=== PATIENT | male | born 1950 | race Hispanic/Latino ===

== ENCOUNTER 2024-04-30 08:27 | Inpatient (IN) | payer MEDICARE ==
[2024-04-30 09:06] LABS: #Basophils 0.03 10x3/uL (0.0-0.2); %Basophils 0.2 % (0.0-1.0); %Eosinophils 0.4 % (0.0-10.0); %Lymphocytes 8.2 % (21.0-51.0); %Monocytes 5.2 % (0.0-10.0); %Neutrophils 85.5 % (42.0-75.0); Hematocrit 45.8 % (42.0-52.0); Hemoglobin 15.9 g/dL (14.0-18.0); Mean Corpuscular HGB CONC 34.7 g/dL (32.0-36.0); Mean Corpuscular Hemoglobin 32.6 pg (27.0-31.0); Mean Platelet Volume 11.3 fL (7.4-10.4); Platelet Count 146 10x3/uL (130-400); RBC Distribution Width 13.1 % (11.5-14.5); Red Blood Cell (RBC) Count 4.87 mill/uL (4.70-6.10)
[2024-04-30 09:21] LABS: ALT (SGPT) 22 U/L (8-55); AST (SGOT) 23 U/L (5-34); Acetaminophen Less than 10 mcg/mL (10.0-30.0); Albumin 4.1 g/dL (3.4-4.8); Alcohol Less than 10.0 mg/dL (Less than 10); Alkaline Phosphatase 115 U/L (40-110); Anion Gap 16 mmol/L (10-20); BUN (Urea Nitrogen) 14 mg/dL (8.4-25.7); Bilirubin, Total 1.2 mg/dL (0.2-1.2); Calc. Creatinine Clearance 0 mL/min (70-130); Calcium 9.4 mg/dL (7.8-10.44); Carbon Dioxide 23 mmol/L (23-31); Chloride 103 mmol/L (98-107); Estimated GFR 70; Globulin 3.4 g/dL (2.4-3.5); Glucose 153 mg/dL (83-110); Potassium 3.6 mmol/L (3.5-5.1); Protein, Total 7.5 g/dL (5.8-8.1); Salicylate Less than 8.0 mg/dL (15.0-30.0); Sodium 138 mmol/L (136-145)
[2024-04-30 09:26] LABS: Troponin I Less than 0.010 ng/mL (< 0.028)
[2024-04-30 11:01] LABS: Bacteria/HPF None Seen HPF (None Seen); Bilirubin Negative (Negative); Blood, Urine Negative (Negative); CAUTI Indications for Culture Alt mental st,lethar; Clarity Clear (Clear); Glucose, Urine (Dipstick) Greater than 1000 mg/dL (Negative); Ketone, Urine Trace mg/dL (Negative); Leukocyte Negative Leu/uL (Negative); Nitrite Negative (Negative); Protein, Urine (Dipstick) Negative (Neg-Trace); RBC/HPF None Seen HPF (0-3); Specific Gravity, Urine 1.014 (1.002-1.036); Squamous Epithelial None Seen HPF (0-3); Urobilinogen Normal mg/dL (Less than 2); WBC/HPF 0-3 HPF (0-3); pH, Urine 5.5 (5.0-9.0)
[2024-04-30 11:02] LABS: Urine Culture Reflex No No
[2024-04-30 11:05] LABS: Amphetamine Not Detected (NotDetected); Barbiturates Screen Not Detected (NotDetected); Benzodiazepine Screen Not Detected (NotDetected); Cocaine Metabolite Screen Not Detected (NotDetected); Methadone Not Detected (NotDetected); Methamphetamine Not Detected (NotDetected); Opiate Screen Not Detected (NotDetected); Oxycodone Screen Not Detected (NotDetected); Phencyclidine (PCP) Not Detected (NotDetected); THC/Cannabinoid Screen Not Detected (NotDetected); Tricyclic Screen Not Detected (NotDetected)
[2024-04-30] MEDS ORDERED: Acetaminophen 500 MG TAB ONE (11:17)
[2024-04-30 12:13] LABS: Influenza A by NAA Not Detected (NotDetected); Influenza B by NAA Not Detected (NotDetected); SARS-CoV-2 NAA Rapid Test DETECTED (NotDetected)
[2024-04-30] MEDS ORDERED: Acetaminophen 325 MG TAB PO PRN (13:47)
[2024-04-30] MEDS ORDERED: Benzonatate 100 MG CAP PO PRN (13:47)
[2024-04-30] MEDS ORDERED: hydrALAZINE 20 MG/ML VIAL SLOW IVP PRN (13:47)
[2024-04-30] MEDS ORDERED: Albuterol 200 PUFF (6.7GM INHALER) INH PRN (13:47)
[2024-04-30 14:08] LABS: Actual Bicarbonate (HCO3v) 24.2 mEq/L (22-28); Base Excess 0.4 mEq/L (-2.0 to +3.0); Calcium, Ionized (venous) 1.12 mmol/L (1.16-1.32); Chloride (VBG) 102 mmol/L (98-106); Hematocrit-VBG 47 % (42.0-52.0); Hemoglobin (Hb) 15.9 g/dL (12.6-17.4); Potassium (VBG) 3.96 mmol/L (3.70-5.30); Sodium 139 mmol/L (133-146); pH (venous) 7.437 (7.32-7.43)
[2024-04-30 14:56] LABS: Hemoglobin A1c 6.2 % (4.0-6.0)
[2024-04-30 15:30] VITALS: BMI 29.5
[2024-04-30] MEDS ORDERED: Aspirin Chewable 81 MG TAB ONE (16:39)
[2024-04-30] MEDS ORDERED: Enoxaparin 40 MG (0.4 mL) SYRINGE ONE (16:40)
[2024-04-30] MEDS: Aspirin 81 mg Enteric Coated Tablet PO SCH (16:46)
[2024-04-30] MEDS: Lactated Ringer's 1,000 ML IV SCH (16:46)
[2024-04-30] MEDS: Enoxaparin 40 MG (0.4 mL) SYRINGE SC SCH (16:46)
[2024-04-30] MEDS ORDERED: Acetaminophen 650 MG/20.3 ML UDCUP ONE (18:06)
[2024-04-30] MEDS: Acetaminophen 650 MG Suppository PR PRN (18:10)
[2024-04-30] MEDS: Atorvastatin Calcium 40 MG TAB PO SCH (23:59)
[2024-05-01 09:59] LABS: Anion Gap 13 mmol/L (10-20); BUN (Urea Nitrogen) 10 mg/dL (8.4-25.7); Calc. Creatinine Clearance 78 mL/min (70-130); Calcium 8.9 mg/dL (7.8-10.44); Carbon Dioxide 23 mmol/L (23-31); Cardiac Risk 3.1 (Less than 4.5); Chloride 106 mmol/L (98-107); Cholesterol 112 mg/dl (< 200 Desired); Estimated GFR 79; Glucose 89 mg/dL (83-110); HDL Cholesterol 36 mg/dL (>60 Neg Risk); LDL Cholesterol, Calculated 60 mg/dL; Potassium 3.7 mmol/L (3.5-5.1); Sodium 138 mmol/L (136-145); Triglycerides 80 mg/dL (Less than 150)
[2024-05-01 10:01] LABS: #Basophils Less than 0.03 10x3/uL (0.0-0.2); #Eosinphils Less than 0.03 10x3/uL (0.0-0.7); %Basophils 0.2 % (0.0-1.0); %Eosinophils 0.2 % (0.0-10.0); %Lymphocytes 8.4 % (21.0-51.0); %Monocytes 9.4 % (0.0-10.0); %Neutrophils 81.4 % (42.0-75.0); Hematocrit 43.2 % (42.0-52.0); Hemoglobin 15.1 g/dL (14.0-18.0); Mean Corpuscular Hemoglobin 32.3 pg (27.0-31.0); Mean Corpuscular Volume 92.5 fL (78.0-98.0); Mean Platelet Volume 11.4 fL (7.4-10.4); Platelet Count 122 10x3/uL (130-400); RBC Distribution Width 13.5 % (11.5-14.5); Red Blood Cell (RBC) Count 4.67 mill/uL (4.70-6.10)
[2024-05-01] MEDS: Pantoprazole DR 40 MG TAB PO SCH (10:15)
[2024-05-01] MEDS: Aspirin 81 mg Enteric Coated Tablet PO SCH (10:15)
[2024-05-01] MEDS: Ascorbic Acid 500 mg Chewable Tablet PO SCH (10:16)
[2024-05-01] MEDS: Enoxaparin 40 MG (0.4 mL) SYRINGE SC SCH (10:16)
[2024-05-01] MEDS: Zinc Sulfate 220 MG CAP PO SCH (10:16)
[2024-05-01] MEDS ORDERED: hydrOXYzine 25 MG TAB PO PRN (18:57)
[2024-05-01] MEDS: Ketorolac Tromethamine 30 MG (1 mL) VIAL IVP SCH (21:47)
[2024-05-02] MEDS: Ketorolac Tromethamine 30 MG (1 mL) VIAL IVP SCH (00:55)
[2024-05-02 04:58] LABS: #Basophils 0.03 10x3/uL (0.0-0.2); %Basophils 0.4 % (0.0-1.0); %Eosinophils 1.7 % (0.0-10.0); %Lymphocytes 19.4 % (21.0-51.0); %Monocytes 14.9 % (0.0-10.0); %Neutrophils 63.5 % (42.0-75.0); Hematocrit 43.1 % (42.0-52.0); Hemoglobin 14.8 g/dL (14.0-18.0); Mean Corpuscular HGB CONC 34.3 g/dL (32.0-36.0); Mean Corpuscular Hemoglobin 32.2 pg (27.0-31.0); Mean Corpuscular Volume 93.9 fL (78.0-98.0); Mean Platelet Volume 11.9 fL (7.4-10.4); Platelet Count 115 10x3/uL (130-400); RBC Distribution Width 13.2 % (11.5-14.5); Red Blood Cell (RBC) Count 4.59 mill/uL (4.70-6.10)
[2024-05-02 05:17] LABS: ALT (SGPT) 20 U/L (8-55); AST (SGOT) 32 U/L (5-34); Albumin 3.3 g/dL (3.4-4.8); Alkaline Phosphatase 84 U/L (40-110); Anion Gap 13 mmol/L (10-20); BUN (Urea Nitrogen) 13 mg/dL (8.4-25.7); Bilirubin, Total 0.7 mg/dL (0.2-1.2); Calc. Creatinine Clearance 66 mL/min (70-130); Calcium 8.9 mg/dL (7.8-10.44); Carbon Dioxide 26 mmol/L (23-31); Chloride 102 mmol/L (98-107); Estimated GFR 64; Globulin 3.4 g/dL (2.4-3.5); Glucose 136 mg/dL (83-110); Potassium 3.5 mmol/L (3.5-5.1); Protein, Total 6.7 g/dL (5.8-8.1); Sodium 137 mmol/L (136-145)
[2024-05-02] MEDS ORDERED: Atorvastatin Calcium 20 MG TAB PO SCH (09:00)
[2024-05-02] MEDS: Tamsulosin HCl 0.4 MG CAP PO SCH (09:28)
[2024-05-02] MEDS: Glimepiride 4 MG TAB PO SCH (09:28)
[2024-05-02] MEDS: Pantoprazole DR 40 MG TAB PO SCH (09:29)
[2024-05-04 05:15] LABS: #Basophils Less than 0.03 10x3/uL (0.0-0.2); %Basophils 0.2 % (0.0-1.0); %Eosinophils 6.1 % (0.0-10.0); %Lymphocytes 22.2 % (21.0-51.0); %Monocytes 10.9 % (0.0-10.0); %Neutrophils 60.4 % (42.0-75.0); Hematocrit 42.2 % (42.0-52.0); Hemoglobin 14.6 g/dL (14.0-18.0); Mean Corpuscular HGB CONC 34.6 g/dL (32.0-36.0); Mean Corpuscular Hemoglobin 32.4 pg (27.0-31.0); Mean Corpuscular Volume 93.8 fL (78.0-98.0); Mean Platelet Volume 11.8 fL (7.4-10.4); Platelet Count 128 10x3/uL (130-400); RBC Distribution Width 12.9 % (11.5-14.5)
[2024-05-04 05:33] LABS: Anion Gap 12 mmol/L (10-20); BUN (Urea Nitrogen) 13 mg/dL (8.4-25.7); Calc. Creatinine Clearance 83 mL/min (70-130); Calcium 8.7 mg/dL (7.8-10.44); Carbon Dioxide 26 mmol/L (23-31); Chloride 104 mmol/L (98-107); Estimated GFR 85; Glucose 92 mg/dL (83-110); Potassium 3.3 mmol/L (3.5-5.1); Sodium 139 mmol/L (136-145)
[2024-05-04] MEDS: Potassium Chloride 20 MEQ TAB PO SCH (08:36)
[2024-05-04 10:06] VITALS: BP 136/76; TEMP 97.8
== END 2024-05-04 12:55 | disposition home or self-care (01) | DRG 70 ==
LOC: ERS 08:27 → ERHOLD 13:34 → 2SE 19:34 → OBSVTOIN 05-01 19:03
PROVIDERS: ADMIT Internal Medicine; ATTEND Family Medicine
DX: G93.41 Metabolic encephalopathy (principal); U07.1 COVID-19; I10 Essential (primary) hypertension; E11.9 Type 2 diabetes mellitus without complications; F03.90 Unspecified dementia, unspecified severity, without behavioral disturbance, psychotic disturbance, mood disturbance, and anxiety; E78.00 Pure hypercholesterolemia, unspecified; F41.8 Other specified anxiety disorders; Z79.84 Long term (current) use of oral hypoglycemic drugs; Z79.899 Other long term (current) drug therapy
CPT/HCPCS: 36415; 36416; 70450; 70551; 71045; 80048; 80053; 80061; 80306; 80307; 81001; 82805; 83036; 84443; 84484; 85025; 93005; 94760; 96372; G0378; J1650; J1885; J7120